=== PATIENT | female | born 1975 | race American Indian/Alaskan Native ===

== ENCOUNTER 2019-05-22 20:30 | Emergency (ER) | payer OTHER ==
--- NOTE | 2019-05-22 20:42 | Event Note ---
ED Screening Note Date of service: 05/22/19 Time: 20:38 ED Screening Note: 43 y o female presents cc of dizziness and blurred vision worsens with standing This initial assessment/diagnostic orders/clinical plan/treatment(s) is/are subject to change based on patients health status, clinical progression and re- assessment by fellow clinical providers in the ED. Further treatment and workup at subsequent clinical providers discretion. Patient/guardian urged not to elope from the ED as their condition may be serious if not clinically assessed and managed. Initial orders include: labs
[2019-05-22 21:06] LABS: Basophils % (Auto) 0.6 % (0.0-1.8); Eosinophils # (Auto) 0.1 K/mm3 (0.0-0.4); Eosinophils % (Auto) 1.9 % (0.0-4.3); Hematocrit 35.1 % (30.3-42.9); Hemoglobin 12.4 gm/dl (10.1-14.3); Lymphocytes # (Auto) 1.3 K/mm3 (1.2-5.4); Lymphocytes % (Auto) 20.2 % (13.4-35.0); Mean Corpuscular HGB Conc 35 % (30-34); Mean Corpuscular Volume 94 fl (79-97); Monocytes # (Auto) 0.3 K/mm3 (0.0-0.8); Monocytes % (Auto) 5.3 % (0.0-7.3); Platelet Count 212 K/mm3 (140-440); Red Blood Count 3.74 M/mm3 (3.65-5.03); Red Cell Distribution Width 14.1 % (13.2-15.2)
[2019-05-22 21:16] LABS: INR 0.97 (0.87-1.13)
[2019-05-22 21:20] LABS: BUN/Creatinine Ratio 9; Blood Urea Nitrogen 11 mg/dL (7-17); Calcium 8.6 mg/dL (8.4-10.2); Hemolysis Index 9
[2019-05-22] MEDS ORDERED: KCL 10MEQ/100ML 10 MEQ/100 ML BAG IV ONE (21:35)
[2019-05-22] MEDS: KCL 10MEQ/100ML 10 MEQ/100 ML BAG IV SCH ×2 (21:38→23:47)
[2019-05-22] MEDS ORDERED: NACL 0.9% 1000 ML 1,000 ML IV ONE (21:39)
--- NOTE | 2019-05-22 21:49 | Emergency Department Report ---
ED General Adult HPI - General Chief complaint: Dizziness Stated complaint: DIZZINESS Time Seen by Provider: 05/22/19 20:37 Source: patient Mode of arrival: Ambulatory Limitations: No Limitations - History of Present Illness Initial comments: Patient is 43 years old female with history of diabetes on metformin. Patient presented to the ER complaining of several day history of dizziness, palpitation and generalized weakness. Patient is also complaining of mild shortness of breath but denying any chest pain. Patient denied any history of heart problem before. Patient found to be tachycardic at rate of 132. Patient denies any fever or chills. - Related Data Allergies Allergy/AdvReac Type Severity Reaction Status Date / Time codeine Allergy Rash Verified 05/22/19 20:35 Sulfa (Sulfonamide Allergy Rash Verified 05/22/19 20:35 Antibiotics) ED Review of Systems ROS: Stated complaint: DIZZINESS Other details as noted in HPI Comment: All other systems reviewed and negative Constitutional: denies: chills, fever Respiratory: shortness of breath. denies: cough, orthopnea, SOB with exertion, SOB at rest, stridor, wheezing Cardiovascular: palpitations. denies: chest pain Gastrointestinal: diarrhea. denies: abdominal pain, nausea, vomiting, constipation, hematemesis, melena, hematochezia Musculoskeletal: denies: back pain Neurological: weakness (generalized weakness). denies: headache, numbness, paresthesias, confusion, abnormal gait, vertigo ED Past Medical Hx - Past Medical History Previous Medical History?: Yes Hx Hypertension: Yes Hx Diabetes: Yes - Surgical History Past Surgical History?: Yes Hx Cholecystectomy: Yes - Social History Smoking Status: Never Smoker Substance Use Type: Alcohol ED Physical Exam - General Limitations: No Limitations General appearance: alert, in no apparent distress - Head Head exam: Present: atraumatic, normocephalic, normal inspection - Eye Eye exam: Present: normal appearance, PERRL - ENT ENT exam: Present: normal exam, normal orophraynx, mucous membranes moist - Neck Neck exam: Present: normal inspection, full ROM. Absent: tenderness, meningismus, lymphadenopathy, thyromegaly - Respiratory Respiratory exam: Present: normal lung sounds bilaterally - Cardiovascular Cardiovascular Exam: Present: regular rate, tachycardia - GI/Abdominal GI/Abdominal exam: Present: soft, normal bowel sounds. Absent: distended, tenderness, guarding, rebound, rigid, organomegaly, mass, bruit, pulsatile mass, hernia - Extremities Exam Extremities exam: Present: normal inspection, full ROM, normal capillary refill. Absent: tenderness, pedal edema, joint swelling, calf tenderness - Back Exam Back exam: Present: normal inspection, full ROM. Absent: CVA tenderness (R), CVA tenderness (L), muscle spasm, paraspinal tenderness, vertebral tenderness, rash noted - Neurological Exam Neurological exam: Present: alert, oriented X3, CN II-XII intact, normal gait, reflexes normal. Absent: abnormal gait, motor sensory deficit - Psychiatric Psychiatric exam: Present: normal mood - Skin Skin exam: Present: warm, intact, normal color ED Course Vital Signs 05/22/19 05/22/19 05/22/19 20:35 20:36 21:21 Temperature 98.3 F Pulse Rate 132 H 110 H Respiratory 18 18 14 Rate Blood Pressure 128/88 Blood Pressure 151/99 [Left] O2 Sat by Pulse 98 100 98 Oximetry 05/22/19 05/22/19 05/23/19 21:22 23:46 00:58 Temperature Pulse Rate 113 H 98 H 94 H Respiratory 17 17 Rate Blood Pressure Blood Pressure 128/84 124/75 [Left] O2 Sat by Pulse 98 99 Oximetry ED Medical Decision Making - Lab Data Result diagrams: 05/22/19 20:50 05/22/19 20:50 - EKG Data -: EKG Interpreted by Nd EKG shows normal: sinus rhythm Rate: tachycardia - EKG Data Interpretation: no acute changes - Radiology Data Radiology results: report reviewed - Medical Decision Making Patient is 43 years old female with history of diabetes on metformin. Patient presented to the ER complaining of several day history of dizziness, palpitation and generalized weakness. Patient is also complaining of mild shortness of breath but denying any chest pain. Patient denied any history of heart problem before. Patient found to be tachycardic at rate of 132. Patient denies any fever or chills. Patient received 2 L of normal saline. Patient lactic acid and came down from 3-1.7. No source of infection to suggest sepsis. CT chest angiogram is negative for pulmonary embolism. Patient repeated EKG showed a normal sinus rhythm at a rate of 91. Patient admitted that she has nausea vomiting and diarrhea over the weekend. Patient potassium replaced. Patient advised to follow-up with her primary care physician in the next 2-3 days and to return to the ER if symptoms are not improved. Critical care attestation.: If time is entered above; I have spent that time in minutes in the direct care of this critically ill patient, excluding procedure time. ED Disposition Clinical Impression: Dizziness, Generalized weakness, Hypokalemia Disposition: - TO HOME OR SELFCARE Is pt being admited?: No Condition: Stable Instructions: Hypokalemia (ED), Dehydration (ED), Dizziness (ED) Referrals: YOLANDE HEALY MD [Primary Care Provider] - 3-5 Days
[2019-05-22 22:03] LABS: Partial Thromboplastin Time 26.4 Sec. (24.2-36.6)
--- NOTE | 2019-05-22 22:51 | XRay Report ---
. CHEST 1 VIEW INDICATION: SOB. COMPARISON: None. FINDINGS: Support devices: None. Heart: Within normal limits. Lungs/Pleura: No acute air space or interstitial disease. Additional findings: None. IMPRESSION: No acute abnormality. Signer Name: Vipul Patel MD Signed: 05/22/2019 10:47 PM Workstation Name: [id number]
[2019-05-22 23:24] LABS: Free T4 (Free Thyroxine) 1.09 ng/dL (0.76-1.46)
[2019-05-23 00:20] LABS: Bilirubin,Urine NEG (Negative); Blood,Urine NEG (Negative); Color,Urine Yellow (Yellow); Protein,Urine <15 mg/dL mg/dL (Negative); Urobilinogen,Urine < 2.0 mg/dL (<2.0)
[2019-05-23 00:28] LABS: Amphetamine Screen,Urine PRESUMPTIVE NEGATIVE; Benzodiazepines Screen,Urine PRESUMPTIVE NEGATIVE; Cannabinoid Screen,Urine PRESUMPTIVE NEGATIVE; Cocaine Screen,Urine PRESUMPTIVE NEGATIVE; Methadone Screen,Urine PRESUMPTIVE NEGATIVE; Opiate Screen,Urine PRESUMPTIVE NEGATIVE
[2019-05-23] MEDS ORDERED: NACL 0.9% 1000 ML 1,000 ML IV ONE (00:45)
--- NOTE | 2019-05-23 01:12 | Cat Scan Report ---
CT angio chest INDICATION / CLINICAL INFORMATION: dizziness and elevated d-dimer. TECHNIQUE: Axial CT images were obtained after injection of Omnipaque 350, 100 cc IV contrast using CTA protocol . 3 plane MIP / 3D reconstructions were produced. All CT scans at this location are performed using C T dose reduction for ALARA by means of automated exposure control. COMPARISON: None available. FINDINGS: The lungs contain no mass, infiltrate or pleural fluid. No mediastinal mass or adenopathy. Negative for aneurysm, dissection or pulmonary embolus. Imaging of the upper abdomen demonstrates pre vious cholecystectomy. IMPRESSION: No pulmonary embolus or pneumonia. Signer Name: Vipul Patel MD Signed: 05/23/2019 1:08 AM Workstation Name: [id number]
[2019-05-23 02:11] VITALS: BP 139/84
== END 2019-05-23 02:21 | disposition home or self-care (01) ==
LOC: ED 20:30
DX: R42 Dizziness and giddiness (principal); R53.1 Weakness; E87.6 Hypokalemia; R00.2 Palpitations; R06.02 Shortness of breath; R11.2 Nausea with vomiting, unspecified; R19.7 Diarrhea, unspecified; I10 Essential (primary) hypertension; E11.9 Type 2 diabetes mellitus without complications; Z79.84 Long term (current) use of oral hypoglycemic drugs; Z90.49 Acquired absence of other specified parts of digestive tract; Z88.5 Allergy status to narcotic agent; Z88.2 Allergy status to sulfonamides
CPT/HCPCS: 36415; 71045; 71275; 80048; 80307; 81001; 82140; 82550; 82553; 83880; 84439; 84443; 84484; 85025; 85379; 85610; 85730; 93005; 93010; 96365; 96366; 99285; J3480; J7030; Q9967

== ENCOUNTER 2020-11-27 22:38 | Emergency (ER) | payer OTHER ==
--- NOTE | 2020-11-27 23:21 | Event Note ---
ED Screening Note Date of service: 11/27/20 Time: 23:20 ED Screening Note: 45-year-old -Turk[place] female who is currently at [facility] presents to the emergency room for hypotension. Patient admits to dizziness. Patient denies any medication use. This initial assessment/diagnostic orders/clinical plan/treatment(s) is/are subject to change based on patients health status, clinical progression and re- assessment by fellow clinical providers in the ED. Further treatment and workup at subsequent clinical providers discretion. Patient/guardian urged not to elope from the ED as their condition may be serious if not clinically assessed and managed. Initial orders include:
[2020-11-28 00:15] LABS: Albumin 4.5 g/dL (3.9-5); Calcium 9.6 mg/dL (8.4-10.2)
[2020-11-28 00:20] LABS: Basophils % (Auto) 0.6 % (0.0-1.8); Eosinophils # (Auto) 0.1 K/mm3 (0.0-0.4); Eosinophils % (Auto) 1.4 % (0.0-4.3); Hematocrit 31.6 % (30.3-42.9); Hemoglobin 11.1 gm/dl (10.1-14.3); Lymphocytes # (Auto) 1.9 K/mm3 (1.2-5.4); Lymphocytes % (Auto) 30.4 % (13.4-35.0); Mean Corpuscular HGB Conc 35 % (30-34); Mean Corpuscular Volume 88 fl (79-97); Monocytes # (Auto) 0.9 K/mm3 (0.0-0.8); Monocytes % (Auto) 13.5 % (0.0-7.3); Platelet Count 174 K/mm3 (140-440); Red Blood Count 3.59 M/mm3 (3.65-5.03); Red Cell Distribution Width 16.1 % (13.2-15.2)
[2020-11-28] MEDS ORDERED: SODIUM CHLORIDE 0.9% 1000 ML 1,000 ML IV ONE (00:42)
--- NOTE | 2020-11-28 00:43 | Emergency Department Report ---
ED Dizziness HPI - General Chief Complaint: Dizziness Stated Complaint: DIZZINESS,HYPOTENSION Time Seen by Provider: 11/28/20 00:39 Source: patient, EMS Mode of arrival: Stretcher Limitations: No Limitations - History of Present Illness Initial Comments: Patient is a 45-year-old female who presents emergency room with complaints of dizziness and low blood pressure. Patient presents from the local psychiatry facility, [facility]. Patient is currently at [facility] for suicidal ideations. Patient has a sitter at bedside. Patient states she normally has high blood pressure and today her blood pressure is lower than usual. Patient's current blood pressure is 97/72. Patient states she is ambulatory but she feels dizzy when she walks. Patient states her dizziness better with rest and worse with movement and walking. Patient denies chest pain or shortness of breath. Patient denies any pain. Patient denies any other physical symptoms. Patient denies recent travel. Patient denies recent international travel. Patient denies exposure to the novel coronavirus. Patient denies sick contacts. Patient denies fever and chills. Patient denies cough. Patient denies diarrhea. Patient denies coming in contact with anybody with symptoms of the no ana coronavirus. MD Complaint: dizziness -: Sudden Timing: sudden onset Description: lightheadedness History of Same: No History of Trauma: No Severity: severe Improves With: rest Worsens With: movement Associated Symptoms: denies: ataxia, chest pain, confusion, cough, diaphoresis, fever/chills, loss of appetite, rash, seizure, shortness of breath, syncope, weakness - Related Data Previous Rx's Medication Instructions Recorded Last Taken Type Ondansetron [Zofran Odt] 4 mg PO Q8HR PRN #14 tab.rapdis 05/23/19 Unknown Rx Potassium Chloride [K-Dur] 10 meq PO QDAY #5 tablet 05/23/19 Unknown Rx Allergies Allergy/AdvReac Type Severity Reaction Status Date / Time codeine Allergy Rash Verified 05/22/19 20:35 Sulfa (Sulfonamide Allergy Rash Verified 05/22/19 20:35 Antibiotics) ED Review of Systems ROS: Stated complaint: DIZZINESS,HYPOTENSION Other details as noted in HPI Constitutional: denies: chills, fever Eyes: denies: eye pain, eye discharge, vision change ENT: denies: ear pain, throat pain Respiratory: denies: cough, shortness of breath, wheezing Cardiovascular: denies: chest pain, palpitations Endocrine: no symptoms reported Gastrointestinal: denies: abdominal pain, nausea, diarrhea Genitourinary: denies: urgency, dysuria, discharge Musculoskeletal: denies: back pain, joint swelling, arthralgia Skin: denies: rash, lesions Neurological: as per HPI. denies: headache, weakness, paresthesias Psychiatric: denies: anxiety, depression Hematological/Lymphatic: denies: easy bleeding, easy bruising ED Past Medical Hx - Past Medical History Previous Medical History?: Yes Hx Hypertension: Yes Hx Diabetes: Yes - Surgical History Past Surgical History?: Yes Hx Cholecystectomy: Yes - Family History Family history: no significant - Social History Smoking Status: Never Smoker Substance Use Type: None - Medications Home Medications: Home Medications Medication Instructions Recorded Confirmed Last Taken Type Ondansetron [Zofran Odt] 4 mg PO Q8HR PRN #14 tab.rapdis 05/23/19 Unknown Rx Potassium Chloride [K-Dur] 10 meq PO QDAY #5 tablet 05/23/19 Unknown Rx ED Physical Exam - General Limitations: No Limitations General appearance: alert, in no apparent distress - Head Head exam: Present: atraumatic, normocephalic - Eye Eye exam: Present: normal appearance - ENT ENT exam: Present: mucous membranes moist - Neck Neck exam: Present: normal inspection - Respiratory Respiratory exam: Present: normal lung sounds bilaterally. Absent: respiratory distress - Cardiovascular Cardiovascular Exam: Present: regular rate, normal rhythm. Absent: systolic murmur, diastolic murmur, rubs, gallop - GI/Abdominal GI/Abdominal exam: Present: soft, normal bowel sounds - Extremities Exam Extremities exam: Present: normal inspection - Back Exam Back exam: Present: normal inspection - Neurological Exam Neurological exam: Present: alert, oriented X3, CN II-XII intact, normal gait. Absent: abnormal gait, motor sensory deficit - Psychiatric Psychiatric exam: Present: normal affect, normal mood - Skin Skin exam: Present: warm, dry, intact, normal color. Absent: rash ED Course Vital Signs 11/27/20 11/28/20 11/28/20 23:18 00:38 00:46 Temperature 98.1 F Pulse Rate 75 70 68 Respiratory 18 14 11 L Rate Blood Pressure 97/72 108/64 O2 Sat by Pulse 100 99 100 Oximetry 11/28/20 11/28/20 01:00 01:16 Temperature Pulse Rate 72 70 Respiratory 16 17 Rate Blood Pressure 108/64 105/61 O2 Sat by Pulse 100 100 Oximetry - Reevaluation(s) Reevaluation #1: Patient states she is feeling much better. Patient has received 400 cc of fluid from her 1 L bag. We will continue to monitor blood pressure. Patient blood pressure is above 100. 11/28/20 01:40 Reevaluation #2: Patient states her symptoms have completely resolved. Patient is ambulatory without dizziness. Patient's symptoms are secondary to dehydration and decrea sed water intake. Patient states she has not been working as much water. I discussed all results and clinical findings with patient. I discussed plan of care with patient. Patient agrees with plan of care. Patient is stable for discharge. Patient will be discharged back to [facility] with the patient's sitter.. Patient given discharge instructions. Patient voiced understanding of discharge instructions. 11/28/20 02:10 ED Medical Decision Making - Lab Data Result diagrams: 11/27/20 23:24 11/27/20 23:24 - EKG Data -: EKG Interpreted by Dc EKG shows normal: sinus rhythm, axis, intervals, QRS complexes, ST-T waves Rate: normal - Medical Decision Making Patient is a 45-year-old female that presents emergency room with complaints of dizziness and low blood pressure. Patient states her blood pressure is lower than her usual. Patient had dizziness with ambulation. Patient given fluids. Prior to completion of her liter of fluids the patient was asymptomatic. Patient given entire liter bolus. Patient's vital signs are stable the entire time in the ER. Patient's labs are consistent with dehydration. Patient has elevated creatinine and BUN. The rest of the labs were essentially unremarkable. Patient is stable for discharge. Patient will be discharged back to her psychiatric facility. Patient given discharge instructions. - Differential Diagnosis Dizziness, dehydration, increase water intake, lightheadedness, hypotension Critical care attestation.: If time is entered above; I have spent that time in minutes in the direct care of this critically ill patient, excluding procedure time. ED Disposition Clinical Impression: Dehydration, Dizziness Disposition: DC-01 TO HOME OR SELFCARE Is pt being admited?: No Does the pt Need Aspirin: No Condition: Stable Instructions: Dizziness, Dehydration, Adult, Rehydration, Adult Additional Instructions: Patient to be discharged from the ER back to her psychiatric facility. Patient to follow-up with primary care in 2 to 3 days. Patient to rest. Patient to increase water. Patient to avoid strenuous exercise or heavy lifting until cleared by primary care. Patient to take Tylenol or ibuprofen as needed for pain. Patient to return to the ER if condition worsens, changes or new symptoms arise. Patient had a low-salt diet. Patient to continue all medications. Referrals: PRIMARY CARE, [Primary Care Provider] - 2-3 Days Time of Disposition: 02:12
[2020-11-28 01:02] LABS: Bacteria,Urine 1+ /HPF (Negative); Bilirubin,Urine NEG (Negative); Blood,Urine MOD (Negative); Color,Urine Amber (Yellow); Hyaline Casts,Urine 6 /LPF; Mucus,Urine FEW /HPF; Protein,Urine <15 mg/dL mg/dL (Negative)
[2020-11-28 01:19] VITALS: BP 105/61
== END 2020-11-28 02:27 | disposition home or self-care (01) ==
LOC: ED 22:38
DX: E86.0 Dehydration (principal); R42 Dizziness and giddiness; I10 Essential (primary) hypertension; E11.9 Type 2 diabetes mellitus without complications; Z90.49 Acquired absence of other specified parts of digestive tract; Z79.899 Other long term (current) drug therapy; Z88.2 Allergy status to sulfonamides; Z88.8 Allergy status to other drugs, medicaments and biological substances
CPT/HCPCS: 36415; 80053; 81001; 85025; 93005; 96360; 99284; J7030